=== PATIENT | female | born 1980 | race Caucasian/White ===

== ENCOUNTER 2017-05-28 07:33 | Emergency (ER) | payer OTHER ==
--- NOTE | 2017-05-28 07:54 | UC ---
Throat Pain/Nasal Saud HPI - HPI Summary HPI Summary: 3 DAYS OF LOW GRADE FEVER TMAX 101, SEVERE SORE THROAT AND DIFFICULTY SWALLOWING DUE TO THE PAIN. NO COUGH OR CONGESTION. SON HAD HAND, FOOT AND MOUTH. DAUGHTER HAD VIRAL ST. PT STATES HER PAIN IS MUCH WORSE TODAY. - History of Current Complaint Chief Complaint: UCGeneralIllness Stated Complaint: SORE THROAT Time Seen by Provider: 05/28/17 07:46 Hx Obtained From: Patient Hx Last Menstrual Period: 05/14/17 Onset/Duration: Gradual Onset, Lasting Days, Still Present Severity: Severe Pain Intensity: 10 Pain Scale Used: 0-10 Numeric Cough: None Associated Signs & Symptoms: Positive: Dysphagia, Fever - Allergies/Home Medications Allergies/Adverse Reactions: Allergies Allergy/AdvReac Type Severity Reaction Status Date / Time No Known Allergies Allergy Verified 05/28/17 07:41 Home Medications: Home Medications Ibuprofen [Advil] 600 mg PO Q6HR PRN 05/28/17 [History Confirmed 05/28/17] Sertraline* [Zoloft*] 1 tab PO DAILY 05/28/17 [History Confirmed 05/28/17] PMH/Surg Hx/FS Hx/Imm Hx Previously Healthy: Yes - Surgical History Surgical History: Yes Surgery Procedure, Year, and Place: Jaw Surgery - Family History Known Family History: Negative: Hypertension, Diabetes - Social History Alcohol Use: Occasionally Substance Use Type: None Smoking Status (MU): Never Smoked Tobacco Review of Systems Constitutional: Fever ENT: Sore Throat Respiratory: Negative Cardiovascular: Negative Gastrointestinal: Negative All Other Systems Reviewed And Are Negative: Yes Physical Exam Triage Information Reviewed: Yes Appearance: Well-Nourished, Pain Distress - MODERATE Vital Signs: Initial Vital Signs Temp 101.0 F 05/28/17 07:34 Pulse 76 05/28/17 07:34 Resp 18 05/28/17 07:34 BP 108/66 05/28/17 07:34 Pulse Ox 100 05/28/17 07:34 Vital Signs Reviewed: Yes Eyes: Positive: Conjunctiva Clear ENT: Positive: Hearing grossly normal, Pharyngeal erythema, TMs normal, Tonsillar swelling, Muffled/hoarse voice. Negative: Tonsillar exudate Neck: Positive: Supple, Tenderness @ - SPFL CERVICAL LAD, Enlarged Nodes @ - SPFL CERVICAL LAD Respiratory Exam: Normal Cardiovascular Exam: Normal Abdomen Description: Positive: Soft Musculoskeletal: Positive: No Edema Neurological: Positive: Alert Psychological: Positive: Age Appropriate Behavior Skin: Negative: rashes Throat Pain/Nasal Course/Dx - Differential Dx/Diagnosis Provider Diagnoses: STREP PHARYNGITIS - CLINICAL DIAGNOSIS Discharge - Discharge Plan Condition: Stable Disposition: HOME Prescriptions: Amoxicillin PO (*) [Amoxicillin 400 MG/5 ML SUSP*] 12.5 ml PO BID #250 ml Lidocaine 2% VISCOUS* 5 - 10 ml MT Q3H PRN #100 ml PRN Reason: Pain Patient Education Materials: Pharyngitis (ED), Strep Throat (ED) Referrals: Darnell Cruz MD [Medical Doctor] - If Needed Additional Instructions: CLINICALLY YOU APPEAR TO HAVE STREP SO WE WILL TREAT YOU SUCH. TAKE THE ANTIBIOTICS FOR THE FULL 10 DAYS. OTC CHLORASEPTIC OR CEPACOL LOZENGES FOR SORE THROAT NEEDED. VISCOUS LIDOCAINE WILL HELP BUT EVERYTHING IT TOUCHES WILL GO NUMB. NO EATING OR DRINKING WHILE YOUR MOUTH IS NUMB YOU MAY CHOKE OR BITE YOURSELF. ONCE SYMPTOMS RESOLVED - NEW TOOTHBRUSH DO NOT SHARE FOOD, DRINK, UTENSILS
[2017-05-28] MEDS ORDERED: Ibuprofen TAB* 600 MG PO ONE (07:59)
[2017-05-28] MEDS ORDERED: Ibuprofen PED LIQ* 100 MG/5 ML UDC PO ONE (08:01)
== END 2017-05-28 08:16 | disposition home or self-care (01) ==
LOC: UCEAST 07:33
DX: J02.0 Streptococcal pharyngitis (principal)
CPT/HCPCS: 99202; G0463